=== PATIENT | female | born 1985 ===

== ENCOUNTER 2018-07-15 21:54 | Emergency (ER) | payer SELFPAY | END 2018-07-15 21:55 | disposition left against medical advice (07) | LOC: C.ER 21:54 | DX: Z02.89 Encounter for other administrative examinations (principal); R07.0 Pain in throat ==

== ENCOUNTER 2018-09-29 19:32 | Emergency (ER) | payer SELFPAY ==
[2018-09-29 19:45] VITALS: BP 105/70; PULSE 89; RESP 16; TEMP 98.4; O2SAT 100
--- NOTE | 2018-09-29 20:30 | C.PDOC ---
History Of Present Illness 33 y/o female presents to the ED complaining of cough and congestion for the past 3 days. No fever. Patient also reports earache and generalized bodyaches. She denies any SOB, dizziness, nausea, vomiting, diarrhea, or other associated symptoms. Time Seen by Provider: 09/29/18 19:57 Chief Complaint (Nursing): Cough, Cold, Congestion History Per: Patient History/Exam Limitations: no limitations Onset/Duration Of Symptoms: Days (x 3) Current Symptoms Are (Timing): Still Present Location Of Pain: Ear(s), Diffuse Myalgias Sick Contacts (Context): None Associated Symptoms: denies: Fever Past Medical History Reviewed: Historical Data, Nursing Documentation, Vital Signs Vital Signs: Last Vital Signs Temp 98.4 F 09/29/18 19:40 Pulse 89 09/29/18 19:40 Resp 16 09/29/18 19:40 BP 105/70 09/29/18 19:40 Pulse Ox 100 09/29/18 19:40 - Medical History PMH: No Chronic Diseases Surgical History: No Surg Hx Family History: States: Unknown Family Hx - Social History Hx Alcohol Use: Yes Hx Substance Use: No - Immunization History Hx Tetanus Toxoid Vaccination: No Hx Influenza Vaccination: No Hx Pneumococcal Vaccination: No Review Of Systems Constitutional: Positive for: Other (Body aches). Negative for: Fever, Chills ENT: Positive for: Ear Pain, Nose Congestion Respiratory: Positive for: Cough. Negative for: Shortness of Breath Gastrointestinal: Negative for: Nausea, Vomiting, Diarrhea Skin: Negative for: Rash Neurological: Negative for: Weakness, Dizziness Physical Exam - Physical Exam Appears: Non-toxic, No Acute Distress Skin: Warm, Dry Head: Atraumatic, Normacephalic Eye(s): bilateral: Normal Inspection, PERRL, EOMI Ear(s): Bilateral: Normal (TMs clear) Oral Mucosa: Moist Neck: Normal ROM Chest: Symmetrical Cardiovascular: Rhythm Regular, No Murmur Respiratory: Normal Breath Sounds, No Rales, No Rhonchi, No Wheezing Gastrointestinal/Abdominal: Soft, No Tenderness, No Distention Extremity: Bilateral: Atraumatic, Normal Color And Temperature Neurological/Psych: Oriented x3, Normal Speech ED Course And Treatment O2 Sat by Pulse Oximetry: 100 (RA) Pulse Ox Interpretation: Normal Progress Note: Patient remains afebrile, resting comfortably, in no acute distress. VSS. Patient will be discharged home with Rx for Motrin, Zyrtec, and Tessalon Perles. 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 - Scribe Statement The provider has reviewed the documentation as recorded by the Scribselma Aaron All medical record entries made by the Scribe were at my direction and personally dictated by me. I have reviewed the chart and agree that the record accurately reflects my personal performance of the history, physical exam, medical decision making, and the department course for this patient. I have also personally directed, reviewed, and agree with the discharge instructions and disposition.
== END 2018-09-29 20:47 | disposition home or self-care (01) ==
LOC: C.ER 19:32
DX: J06.9 Acute upper respiratory infection, unspecified (principal)